=== PATIENT | female | born 1975 | race Caucasian/White ===

== ENCOUNTER 2021-09-16 16:01 | Inpatient (IN) ==
[2021-09-16 21:04] LABS: Basophils # 0.1 K/mcL (0.0-0.2); Basophils % 0.2 %; Eosinophils # 0.1 K/mcL (0.0-0.6); Eosinophils % 0.4 %; Hematocrit 52.5 % (35.3-44.9); Hemoglobin 16.5 g/dL (11.5-15.4); Immature Granulocytes % 6.1 % (0-4); Lymphocytes # 2.8 K/mcL (0.6-4.6); Lymphocytes % 11.3 %; Mean Corpuscular HGB Conc 31.4 g/dL (31.6-35.5); Mean Corpuscular Hemoglobin 26.5 pg (28.0-33.3); Mean Corpuscular Volume 84.3 fL (83.0-100.0); Mean Platelet Volume 10.8 fL (9.4-12.4); Monocytes # 1.6 K/mcL (0.0-1.3); Monocytes % 6.3 %; Neutrophils # 18.7 K/mcL (1.6-8.9); Platelet Count 406 K/mcL (140-400); Red Blood Count 6.23 M/mcL (3.82-4.97); Red Cell Distribution Width 13.7 % (11.5-14.5); Segmented Neutrophils % 75.7 %; White Blood Count 24.7 K/mcL (4.3-11.1)
[2021-09-16 21:18] LABS: Alanine Aminotransferase 38 Units/L (7-52); Albumin 3.2 g/dL (3.5-5.7); Albumin/Globulin Ratio 0.7 (1.1-2.2); Alkaline Phosphatase 251 Units/L (34-104); Amylase 23 Units/L (29-103); Aspartate Amino Transferase 35 Units/L (13-39); BUN/Creatinine Ratio 23 (6-26); Bilirubin,Direct 0.2 mg/dL (0.0-0.2); Bilirubin,Indirect 0.7 mg/dL (0.0-1.0); Bilirubin,Total 0.9 mg/dL (0.3-1.0); Blood Urea Nitrogen 19 mg/dL (6-20); Calcium 8.9 mg/dL (8.6-10.3); Carbon Dioxide 36 mEq/L (23-29); Chloride 83 mEq/L (98-107); Globulin 4.6 g/dL (2.4-3.5); Glucose 118 mg/dL (70-105); Lipase 41 Units/L (11-82); Osmolality,Calculated 269 (280-300); Potassium 2.7 mEq/L (3.5-5.1); Sodium 128 mEq/L (136-145); Total Protein 7.8 g/dL (6.4-8.9); eGFR For African Americans > 60 (> 60); eGFR For Non-African Americans > 60 (> 60)
[2021-09-16] MEDS ORDERED: Vancomycin 2,000 MG/520 ML IV.SOLN IVPB ONE (21:32)
[2021-09-16] MEDS ORDERED: Piperacillin/Tazobactam 3.375 GM in 0.9 % Sodium Chloride Mini Bag 100 ML IVPB ONE (21:32)
[2021-09-16 21:40] LABS: Reactive Lymphocytes Present (Not Present)
[2021-09-16] MEDS: Ketorolac 30 MG/ML VIAL IVP ONE (21:51)
[2021-09-16] MEDS ORDERED: Naloxone 0.4 MG/ML INJ IVP PRN (22:49)
[2021-09-16] MEDS ORDERED: Melatonin 3 MG TABLET PO PRN (22:49)
[2021-09-16] MEDS ORDERED: Ondansetron ODT 4 MG TAB.RAPDIS SL PRN (22:49)
[2021-09-16] MEDS ORDERED: Isovue-370 500 ML BOTTLE IVP ONE (23:40)
[2021-09-16] MEDS ORDERED: Ipratropium/Albuterol Neb 3 ML IH PRN (23:52)
[2021-09-17] MEDS ORDERED: Ringers Solution, Lactated 1,000 ML IVC SCH (00:15)
[2021-09-17] MEDS ORDERED: Ringers Solution, Lactated 1,000 ML IVC ONE (00:44)
[2021-09-17] MEDS ORDERED: Dextrose 4 GM Chewable Tablets PO PRN ×2 (01:02)
[2021-09-17] MEDS ORDERED: *HR* Dextrose 50 % in Water (Syg) 50 ML SYRINGE IVP PRN (01:02)
[2021-09-17] MEDS ORDERED: D5% in Water 1,000 ML IVC PRN (01:02)
[2021-09-17] MEDS: Ketorolac 30 MG/ML VIAL IVP ONE (01:31)
[2021-09-17 03:33] LABS: Activated Partial Thrombo Time 28.4 Seconds (26.0-36.0)
[2021-09-17 03:43] LABS: Phosphorous 3.5 mg/dL (2.7-4.5)
[2021-09-17 03:50] LABS: Procalcitonin 1.27 ng/mL (0.00-0.15)
[2021-09-17] MEDS: Nicotine 21 MG PATCH.TD24 TD SCH (04:16)
[2021-09-17] MEDS: *HR* Heparin 5,000 UNIT/ML VIAL SQ SCH ×3 (04:18→17:28)
[2021-09-17 04:39] LABS: INR 1.3; Prothrombin Time 14.4 Seconds (9.4-12.1)
[2021-09-17 05:14] LABS: Basophils # 0.2 K/mcL (0.0-0.2); Basophils % 0.7 %; Eosinophils # 0.1 K/mcL (0.0-0.6); Eosinophils % 0.5 %; Hematocrit 44.2 % (35.3-44.9); Immature Granulocytes % 5.1 % (0-4); Lymphocytes # 2.1 K/mcL (0.6-4.6); Lymphocytes % 9.8 %; Mean Corpuscular HGB Conc 32.4 g/dL (31.6-35.5); Mean Corpuscular Hemoglobin 27.2 pg (28.0-33.3); Mean Platelet Volume 10.6 fL (9.4-12.4); Monocytes # 1.6 K/mcL (0.0-1.3); Monocytes % 7.3 %; Neutrophils # 16.6 K/mcL (1.6-8.9); Platelet Count 297 K/mcL (140-400); Red Blood Count 5.26 M/mcL (3.82-4.97); Red Cell Distribution Width 13.5 % (11.5-14.5); Segmented Neutrophils % 76.6 %; White Blood Count 21.6 K/mcL (4.3-11.1)
[2021-09-17 05:17] LABS: BUN/Creatinine Ratio 30 (6-26); Blood Urea Nitrogen 22 mg/dL (6-20); Carbon Dioxide 34 mEq/L (23-29); Chloride 89 mEq/L (98-107); Chol/HDL Ratio 6.1 (0-4.9); Cholesterol 103 mg/dL (< 200); Glucose 115 mg/dL (70-105); HDL Cholesterol 17 mg/dL (40-59); LDL Cholesterol,Calculated 68 mg/dL (< 100); Osmolality,Calculated 274 (280-300); Potassium 3.2 mEq/L (3.5-5.1); Sodium 130 mEq/L (136-145); Triglycerides 92 mg/dL (< 150); eGFR For African Americans > 60 (> 60); eGFR For Non-African Americans > 60 (> 60)
[2021-09-17 05:19] LABS: Hemoglobin 14.3 g/dL (11.5-15.4)
[2021-09-17] MEDS ORDERED: Potassium Chloride Elixir 20 MEQ/15 ML UDC PO ONE (05:29)
[2021-09-17] MEDS: Piperacillin/Tazobactam 3.375 GM in 0.9 % Sodium Chloride Mini Bag 100 ML IVPB SCH ×4 (05:47→20:26)
[2021-09-17] MEDS: 0.9 % Sodium Chloride 1,000 ML IVC SCH ×3 (05:47→20:24)
[2021-09-17 05:59] LABS: Platelet Estimate Normal (Normal)
[2021-09-17 07:45] LABS: Hepatitis B Surface Antigen Nonreactive (Nonreactive)
[2021-09-17 08:08] LABS: Bilirubin,Urine Negative (Negative); Blood,Urine Trace (Negative); Clarity,Urine Clear (Clear); Color,Urine Yellow (Yellow); Glucose,Urine (UA) Normal (Normal); Ketones,Urine Negative (Negative); Leukocyte Esterase,Urine Negative (Negative); Nitrite,Urine Negative (Negative); Protein,Urine Trace mg/dL (Neg-Trace); RBC,Urine 0-3 per hpf (0-3); Specific Gravity,Urine > 1.030 (1.010-1.025); Urobilinogen,Urine Normal (Normal)
[2021-09-17 08:14] LABS: Hepatitis B Core IgM Nonreactive (Nonreactive)
[2021-09-17 08:15] LABS: Hepatitis A Antibody IgM Nonreactive (Nonreactive)
[2021-09-17] MEDS: Lactobacillus 1 EACH CAP.SPRINK PO SCH ×2 (08:26→20:27)
[2021-09-17] MEDS: Ketorolac 30 MG/ML VIAL IVP PRN (08:43)
[2021-09-17] MEDS: Vancomycin 1,500 MG/265 ML IV.SOLN IVPB SCH ×2 (11:22→20:25)
[2021-09-17 11:50] LABS: Hepatitis C Virus Antibody Reactive (Nonreactive)
[2021-09-17] MEDS: Gabapentin 400 MG CAPSULE PO SCH ×2 (14:45→20:27)
[2021-09-17] MEDS: Methadone Oral Concentrate 50 MG/5 ML UDC PO SCH (14:46)
[2021-09-18] MEDS: Nicotine 21 MG PATCH.TD24 TD SCH (01:19)
[2021-09-18] MEDS: 0.9 % Sodium Chloride 1,000 ML IVC SCH ×3 (05:19→21:33)
[2021-09-18] MEDS: *HR* Heparin 5,000 UNIT/ML VIAL SQ SCH ×2 (05:19→18:14)
[2021-09-18] MEDS: Piperacillin/Tazobactam 3.375 GM in 0.9 % Sodium Chloride Mini Bag 100 ML IVPB SCH ×3 (05:19→21:21)
[2021-09-18 05:45] LABS: Hematocrit 41.8 % (35.3-44.9); Mean Corpuscular HGB Conc 31.1 g/dL (31.6-35.5); Mean Corpuscular Hemoglobin 26.5 pg (28.0-33.3); Mean Corpuscular Volume 85.3 fL (83.0-100.0); Mean Platelet Volume 10.1 fL (9.4-12.4); Platelet Count 278 K/mcL (140-400); Red Cell Distribution Width 13.9 % (11.5-14.5); White Blood Count 14.5 K/mcL (4.3-11.1)
[2021-09-18 06:05] LABS: BUN/Creatinine Ratio 26 (6-26); Blood Urea Nitrogen 18 mg/dL (6-20); Calcium 7.9 mg/dL (8.6-10.3); Carbon Dioxide 32 mEq/L (23-29); Chloride 98 mEq/L (98-107); Glucose 165 mg/dL (70-105); Osmolality,Calculated 284 (280-300); Sodium 134 mEq/L (136-145); Vancomycin,Trough 13 mcg/mL (5-10); eGFR For African Americans > 60 (> 60); eGFR For Non-African Americans > 60 (> 60)
[2021-09-18] MEDS: Methadone Oral Concentrate 50 MG/5 ML UDC PO SCH (10:10)
[2021-09-18] MEDS: Aspirin 81 MG TAB.CHEW PO SCH (10:10)
[2021-09-18] MEDS: Lactobacillus 1 EACH CAP.SPRINK PO SCH ×2 (10:10→21:20)
[2021-09-18] MEDS: Gabapentin 400 MG CAPSULE PO SCH ×3 (10:10→21:20)
[2021-09-18] MEDS: Vancomycin 1,500 MG/265 ML IV.SOLN IVPB SCH ×2 (10:11→21:23)
[2021-09-18] MEDS: tiZANidine 4 MG TABLET PO PRN (21:20)
[2021-09-19] MEDS: *HR* Heparin 5,000 UNIT/ML VIAL SQ SCH ×2 (05:44→17:45)
[2021-09-19] MEDS: Piperacillin/Tazobactam 3.375 GM in 0.9 % Sodium Chloride Mini Bag 100 ML IVPB SCH ×3 (05:45→19:51)
[2021-09-19] MEDS: Nicotine 21 MG PATCH.TD24 TD SCH ×2 (05:46→19:52)
[2021-09-19 06:26] LABS: Hematocrit 41.5 % (35.3-44.9); Hemoglobin 12.7 g/dL (11.5-15.4); Mean Corpuscular HGB Conc 30.6 g/dL (31.6-35.5); Mean Corpuscular Hemoglobin 26.6 pg (28.0-33.3); Mean Platelet Volume 10.1 fL (9.4-12.4); Platelet Count 258 K/mcL (140-400); Red Blood Count 4.77 M/mcL (3.82-4.97); Red Cell Distribution Width 13.9 % (11.5-14.5); White Blood Count 10.4 K/mcL (4.3-11.1)
[2021-09-19 06:44] LABS: BUN/Creatinine Ratio 22 (6-26); Blood Urea Nitrogen 14 mg/dL (6-20); Calcium 8.2 mg/dL (8.6-10.3); Carbon Dioxide 31 mEq/L (23-29); Chloride 99 mEq/L (98-107); Glucose 163 mg/dL (70-105); Osmolality,Calculated 282 (280-300); Potassium 4.2 mEq/L (3.5-5.1); Sodium 134 mEq/L (136-145); eGFR For African Americans > 60 (> 60); eGFR For Non-African Americans > 60 (> 60)
[2021-09-19] MEDS: Methadone Oral Concentrate 50 MG/5 ML UDC PO SCH (08:57)
[2021-09-19] MEDS: Lactobacillus 1 EACH CAP.SPRINK PO SCH ×2 (08:58→19:50)
[2021-09-19] MEDS: Aspirin 81 MG TAB.CHEW PO SCH (08:58)
[2021-09-19] MEDS: Gabapentin 400 MG CAPSULE PO SCH ×3 (08:58→19:50)
[2021-09-19] MEDS: Vancomycin 1,500 MG/265 ML IV.SOLN IVPB SCH ×2 (09:11→21:18)
[2021-09-19] MEDS: 0.9 % Sodium Chloride 1,000 ML IVC SCH ×3 (09:13→19:49)
[2021-09-19] MEDS: Ketorolac 30 MG/ML VIAL IVP PRN (18:47)
[2021-09-19] MEDS: tiZANidine 4 MG TABLET PO PRN (19:50)
[2021-09-20] MEDS: 0.9 % Sodium Chloride 1,000 ML IVC SCH (05:47)
[2021-09-20] MEDS: *HR* Heparin 5,000 UNIT/ML VIAL SQ SCH ×2 (05:48→18:24)
[2021-09-20] MEDS: Piperacillin/Tazobactam 3.375 GM in 0.9 % Sodium Chloride Mini Bag 100 ML IVPB SCH ×3 (05:48→21:07)
[2021-09-20] MEDS: Methadone Oral Concentrate 50 MG/5 ML UDC PO SCH (08:29)
[2021-09-20] MEDS: Aspirin 81 MG TAB.CHEW PO SCH (08:29)
[2021-09-20] MEDS: Gabapentin 400 MG CAPSULE PO SCH ×3 (08:30→21:07)
[2021-09-20] MEDS: Lactobacillus 1 EACH CAP.SPRINK PO SCH ×2 (08:30→21:07)
[2021-09-20 10:03] LABS: BUN/Creatinine Ratio 30 (6-26); Blood Urea Nitrogen 18 mg/dL (6-20); Calcium 8.2 mg/dL (8.6-10.3); Carbon Dioxide 29 mEq/L (23-29); Chloride 100 mEq/L (98-107); Glucose 131 mg/dL (70-105); Osmolality,Calculated 280 (280-300); Potassium 4.9 mEq/L (3.5-5.1); Sodium 133 mEq/L (136-145); eGFR For African Americans > 60 (> 60); eGFR For Non-African Americans > 60 (> 60)
[2021-09-20] MEDS: Vancomycin 1,500 MG/265 ML IV.SOLN IVPB SCH ×2 (12:16→21:55)
[2021-09-20] MEDS: Nicotine 21 MG PATCH.TD24 TD SCH (22:45)
[2021-09-21] MEDS: *HR* Heparin 5,000 UNIT/ML VIAL SQ SCH ×2 (04:52→17:53)
[2021-09-21] MEDS: Piperacillin/Tazobactam 3.375 GM in 0.9 % Sodium Chloride Mini Bag 100 ML IVPB SCH ×2 (04:52→13:23)
[2021-09-21 08:01] LABS: BUN/Creatinine Ratio 24 (6-26); Blood Urea Nitrogen 15 mg/dL (6-20); Calcium 8.3 mg/dL (8.6-10.3); Carbon Dioxide 31 mEq/L (23-29); Chloride 99 mEq/L (98-107); Glucose 175 mg/dL (70-105); Magnesium 1.6 mg/dL (1.6-2.6); Osmolality,Calculated 281 (280-300); Potassium 4.2 mEq/L (3.5-5.1); Sodium 133 mEq/L (136-145); eGFR For African Americans > 60 (> 60); eGFR For Non-African Americans > 60 (> 60)
[2021-09-21 08:03] LABS: Hematocrit 36.9 % (35.3-44.9); Hemoglobin 11.4 g/dL (11.5-15.4); Mean Corpuscular HGB Conc 30.9 g/dL (31.6-35.5); Mean Corpuscular Hemoglobin 26.6 pg (28.0-33.3); Mean Platelet Volume 9.9 fL (9.4-12.4); Platelet Count 239 K/mcL (140-400); Red Blood Count 4.29 M/mcL (3.82-4.97); Red Cell Distribution Width 13.7 % (11.5-14.5)
[2021-09-21] MEDS: Methadone Oral Concentrate 50 MG/5 ML UDC PO SCH (09:54)
[2021-09-21] MEDS: Lactobacillus 1 EACH CAP.SPRINK PO SCH ×2 (09:55→20:27)
[2021-09-21] MEDS: Gabapentin 400 MG CAPSULE PO SCH ×3 (09:55→20:27)
[2021-09-21] MEDS: Aspirin 81 MG TAB.CHEW PO SCH (09:55)
[2021-09-21] MEDS: Vancomycin 1,500 MG/265 ML IV.SOLN IVPB SCH (13:21)
[2021-09-21] MEDS: cephALEXin 500 MG CAPSULE PO SCH ×2 (17:52→20:27)
[2021-09-21] MEDS: Sulfamethoxazole/Trimeth DS 1 EACH TABLET PO SCH (20:27)
[2021-09-22] MEDS: Nicotine 21 MG PATCH.TD24 TD SCH (00:16)
[2021-09-22] MEDS: tiZANidine 4 MG TABLET PO PRN (00:42)
[2021-09-22] MEDS: *HR* Heparin 5,000 UNIT/ML VIAL SQ SCH ×2 (05:58→18:03)
[2021-09-22] MEDS: Sulfamethoxazole/Trimeth DS 1 EACH TABLET PO SCH ×2 (09:32→21:10)
[2021-09-22] MEDS: cephALEXin 500 MG CAPSULE PO SCH ×4 (09:33→21:09)
[2021-09-22] MEDS: Gabapentin 400 MG CAPSULE PO SCH ×3 (09:33→21:09)
[2021-09-22] MEDS: Lactobacillus 1 EACH CAP.SPRINK PO SCH ×2 (09:33→21:10)
[2021-09-22] MEDS: Methadone Oral Concentrate 50 MG/5 ML UDC PO SCH (09:34)
[2021-09-22] MEDS: Aspirin 81 MG TAB.CHEW PO SCH (09:34)
[2021-09-22] MEDS: Acetaminophen 325 MG TABLET PO PRN (16:16)
[2021-09-23] MEDS: Acetaminophen 325 MG TABLET PO PRN (03:12)
[2021-09-23] MEDS: tiZANidine 4 MG TABLET PO PRN ×2 (03:12→21:38)
[2021-09-23] MEDS: *HR* Heparin 5,000 UNIT/ML VIAL SQ SCH ×2 (04:11→17:57)
[2021-09-23] MEDS: Nicotine 21 MG PATCH.TD24 TD SCH (04:11)
[2021-09-23] MEDS: Gabapentin 400 MG CAPSULE PO SCH ×3 (08:49→21:27)
[2021-09-23] MEDS: Methadone Oral Concentrate 50 MG/5 ML UDC PO SCH (08:49)
[2021-09-23] MEDS: Lactobacillus 1 EACH CAP.SPRINK PO SCH ×2 (08:49→21:27)
[2021-09-23] MEDS: Aspirin 81 MG TAB.CHEW PO SCH (08:49)
[2021-09-23] MEDS: cephALEXin 500 MG CAPSULE PO SCH ×4 (08:49→21:38)
[2021-09-23] MEDS: Sulfamethoxazole/Trimeth DS 1 EACH TABLET PO SCH ×2 (11:54→21:26)
[2021-09-24] MEDS: Nicotine 21 MG PATCH.TD24 TD SCH (00:22)
[2021-09-24] MEDS: *HR* Heparin 5,000 UNIT/ML VIAL SQ SCH (04:07)
[2021-09-24] MEDS: Acetaminophen 325 MG TABLET PO PRN (04:07)
[2021-09-24] MEDS: Aspirin 81 MG TAB.CHEW PO SCH (07:39)
[2021-09-24] MEDS: Lactobacillus 1 EACH CAP.SPRINK PO SCH (07:39)
[2021-09-24] MEDS: cephALEXin 500 MG CAPSULE PO SCH ×2 (07:39→13:33)
[2021-09-24] MEDS: Gabapentin 400 MG CAPSULE PO SCH ×2 (07:39→13:33)
[2021-09-24] MEDS: Sulfamethoxazole/Trimeth DS 1 EACH TABLET PO SCH (07:39)
[2021-09-24] MEDS: Methadone Oral Concentrate 50 MG/5 ML UDC PO SCH (07:40)
[2021-09-24 07:47] VITALS: TEMP 97.8
[2021-09-24] MEDS ORDERED: Moderna Covid-19 Vaccine 100MCG/0.5mL IM ONE (09:58)
[2021-09-24 14:58] VITALS: BP 126/84; PULSE 95; O2SAT 96
== END 2021-09-24 16:01 | disposition home health service (06) | DRG 720 ==
LOC: 3ANU 16:01 → EMEROOARM 16:01 → SUATTDRO 21:59 → 3ANU 22:18 → SUATTDRO 09-17 08:06
PROVIDERS: ADMIT Internal Medicine; ATTEND Family Medicine

== ENCOUNTER 2022-04-05 11:27 | Inpatient (IN) ==
[2022-04-05] MEDS ORDERED: Vancomycin 2,000 MG/520 ML IV.SOLN IVPB ONE (15:15)
[2022-04-05] MEDS ORDERED: Iopamidol - 370 500 ML MLS IVP ONE (15:16)
[2022-04-05 15:32] LABS: Hematocrit 42.6 % (35.3-44.9); Mean Corpuscular HGB Conc 30.5 g/dL (31.6-35.5); Mean Corpuscular Hemoglobin 26.2 pg (28.0-33.3); Mean Corpuscular Volume 85.9 fL (83.0-100.0); Mean Platelet Volume 11.2 fL (9.4-12.4); Platelet Count 175 K/mcL (140-400); Red Blood Count 4.96 M/mcL (3.82-4.97); White Blood Count 26.3 K/mcL (4.3-11.1)
[2022-04-05 15:39] LABS: INR 1.7; Prothrombin Time 19.2 Seconds (9.4-12.1)
[2022-04-05 15:54] LABS: Alanine Aminotransferase 37 Units/L (7-52); Albumin 3.9 g/dL (3.5-5.7); Alkaline Phosphatase 104 Units/L (34-104); Aspartate Amino Transferase 36 Units/L (13-39); BUN/Creatinine Ratio 21 (6-26); Bilirubin,Direct 0.6 mg/dL (0.0-0.2); Bilirubin,Indirect 0.9 mg/dL (0.0-1.0); Bilirubin,Total 1.5 mg/dL (0.3-1.0); Blood Urea Nitrogen 16 mg/dL (6-20); Calcium 9.4 mg/dL (8.6-10.3); Carbon Dioxide 31 mEq/L (23-29); Chloride 93 mEq/L (98-107); Globulin 3.8 g/dL (2.4-3.5); Glucose 89 mg/dL (70-105); Osmolality,Calculated 271 (280-300); Potassium 3.9 mEq/L (3.5-5.1); Sodium 130 mEq/L (136-145); Total Protein 7.7 g/dL (6.4-8.9)
[2022-04-05 15:56] LABS: Lymphocytes # 1.6 K/mcL (0.6-4.6); Monocytes # 0.5 K/mcL (0.0-1.3); Neutrophils # 24.2 K/mcL (1.6-8.9)
[2022-04-05 15:59] LABS: Troponin I 0.26 ng/mL (< 0.04)
[2022-04-05] MEDS ORDERED: Aspirin 325 MG TABLET PO ONE (16:00)
[2022-04-05] MEDS: 0.9 % Sodium Chloride 1,000 ML IVC SCH ×2 (16:05→18:17)
[2022-04-05 17:41] LABS: Adenovirus Not Detected (Not Detect); Bordetella Pertussis Not Detected (Not Detect); Chlamydophila pneumoniae Not Detected (Not Detect); Coronavirus 229E Not Detected (Not Detect); Coronavirus HKU1 Not Detected (Not Detect); Coronavirus NL63 Not Detected (Not Detect); Coronavirus OC43 Not Detected (Not Detect); Human Metapneumovirus Not Detected (Not Detect); Human Rhinovirus/Enterovirus Not Detected (Not Detect); Influenza A Subtype 2009 H1 Not Detected (Not Detect); Influenza B Not Detected (Not Detect); Mycoplasma pneumoniae Not Detected (Not Detect); Parainfluenza Virus 1 Not Detected (Not Detect); Parainfluenza Virus 2 Not Detected (Not Detect); Parainfluenza Virus 3 Not Detected (Not Detect); Parainfluenza Virus 4 Not Detected (Not Detect); Respiratory Syncytial Virus Not Detected (Not Detect); SARS-CoV-2 Not Detected (Not Detect)
[2022-04-05] MEDS ORDERED: *HR* Heparin 5,000 UNIT/ML VIAL IVP ONE (18:12)
[2022-04-05] MEDS ORDERED: 0.9 % Sodium Chloride 1,000 ML IVC ONE (18:28)
[2022-04-05] MEDS ORDERED: Ondansetron 4 MG/2 ML VIAL IVP PRN (19:42)
[2022-04-05] MEDS ORDERED: Melatonin 3 MG TABLET PO PRN (19:42)
[2022-04-05] MEDS ORDERED: Naloxone 0.4 MG/ML INJ IVP PRN (19:42)
[2022-04-05] MEDS ORDERED: Vancomycin (wt based) 1,000 MG VIAL IVPB SCH (20:00)
[2022-04-05 20:18] LABS: Amphetamine Screen,Urine Positive ng/mL (Cutoff=1000); Barbiturate Screen,Urine Negative ng/mL (Cutoff=200); Benzodiazepines Screen,Urine Negative ng/mL (Cutoff=200); Cannabinoid Screen,Urine Negative ng/mL (Cutoff = 50); Cocaine Screen,Urine Negative ng/mL (Cutoff= 300); Opiate Screen,Urine Negative ng/mL (Cutoff=300); Phencyclidine Screen,Urine Negative ng/mL (Cutoff=25)
[2022-04-05] MEDS: Heparin 25,000UNIT/250ML 1/2NS 25,000 UNIT/250 ML IV.SOLN IVC SCH (20:19)
[2022-04-05 20:48] LABS: Bilirubin,Urine Negative (Negative); Blood,Urine Trace (Negative); Clarity,Urine Clear (Clear); Color,Urine Light-Orange (Yellow); Glucose,Urine (UA) Normal (Normal); Ketones,Urine Trace mg/dL (Negative); Leukocyte Esterase,Urine Negative (Negative); Mucus,Urine Few per lpf (None-Few); Nitrite,Urine Negative (Negative); PH,Urine 6.5 pH Units (5.0-8.0); Protein,Urine 50 mg/dL (Neg-Trace); Specific Gravity,Urine > 1.030 (1.010-1.025); Squamous Epithelial Cell,Urine Few per hpf (None-Few); Urobilinogen,Urine Normal (Normal); WBC,Urine 0-3 per hpf (0-3)
[2022-04-05] MEDS: Azithromycin 500 MG in 0.9 % Sodium Chloride 250 ML IVPB SCH (21:12)
[2022-04-05] MEDS: Metoprolol XL (24 HR) Succ 25 MG TAB.ER.24H PO SCH (21:13)
[2022-04-05 23:19] LABS: ABG Base Excess 0 mEq/L (-2 to 3); ABG HCO3 25 mEq/L (21-27); ABG Oxygen Saturation 95 % (95-98); ABG PCO2 45 mmHg (35-45); ABG PH 7.36 pH Units (7.32-7.45); ABG PO2 77 mmHg (85-104); ABG TCO2 27 mEq/L (20-26)
[2022-04-06] MEDS: Cefepime HCl 2,000 MG in 0.9 % Sodium Chloride 10 ML IVP SCH ×3 (00:10→14:22)
[2022-04-06] MEDS: Vancomycin 1,750 MG/517.5 ML IV.SOLN IVPB SCH ×2 (00:13→11:42)
[2022-04-06] MEDS: Ipratropium/Albuterol Neb 3 ML IH SCH ×6 (02:00→19:35)
[2022-04-06 03:53] LABS: Mean Corpuscular HGB Conc 30.8 g/dL (31.6-35.5); Mean Corpuscular Hemoglobin 26.5 pg (28.0-33.3); Mean Corpuscular Volume 85.8 fL (83.0-100.0); Platelet Count 130 K/mcL (140-400); Red Blood Count 4.31 M/mcL (3.82-4.97); Red Cell Distribution Width 14.1 % (11.5-14.5); White Blood Count 18.2 K/mcL (4.3-11.1)
[2022-04-06 03:54] LABS: Alanine Aminotransferase 28 Units/L (7-52); Albumin/Globulin Ratio 0.9 (1.1-2.2); Alkaline Phosphatase 74 Units/L (34-104); Aspartate Amino Transferase 26 Units/L (13-39); BUN/Creatinine Ratio 21 (6-26); Bilirubin,Direct 0.4 mg/dL (0.0-0.2); Bilirubin,Indirect 0.5 mg/dL (0.0-1.0); Bilirubin,Total 0.9 mg/dL (0.3-1.0); Blood Urea Nitrogen 14 mg/dL (6-20); Calcium 8.4 mg/dL (8.6-10.3); Carbon Dioxide 30 mEq/L (23-29); Chloride 100 mEq/L (98-107); Globulin 3.3 g/dL (2.4-3.5); Glucose 131 mg/dL (70-105); Magnesium 1.6 mg/dL (1.6-2.6); Osmolality,Calculated 276 (280-300); Potassium 3.1 mEq/L (3.5-5.1); Sodium 132 mEq/L (136-145); Total Protein 6.3 g/dL (6.4-8.9)
[2022-04-06 03:55] LABS: Hemoglobin 11.4 g/dL (11.5-15.4)
[2022-04-06 04:02] LABS: INR 1.6; Prothrombin Time 17.3 Seconds (9.4-12.1)
[2022-04-06] MEDS ORDERED: *HR* Heparin 5,000 UNIT/ML VIAL IVP PRN (06:10)
[2022-04-06] MEDS: *HR* Heparin 5,000 UNIT/ML VIAL IVP PRN ×2 (06:16→14:21)
[2022-04-06] MEDS: Budesonide/Formoterol 80/4.5 1 PUFF INH IH SCH ×2 (07:23→19:35)
[2022-04-06] MEDS: Metoprolol XL (24 HR) Succ 25 MG TAB.ER.24H PO SCH (08:00)
[2022-04-06] MEDS ORDERED: Gadolinium Contrast Agent (WT Based) IV PRN (08:41)
[2022-04-06] MEDS ORDERED: Pantoprazole 40 MG VIAL IVP SCH (09:00)
[2022-04-06] MEDS ORDERED: predniSONE 20 MG TABLET PO SCH (09:00)
[2022-04-06] MEDS ORDERED: Aspirin 81 MG TAB.CHEW PO SCH (09:00)
[2022-04-06] MEDS ORDERED: Nicotine 21 MG PATCH.TD24 TD SCH (10:30)
[2022-04-06 14:42] VITALS: PULSE 84
[2022-04-06] MEDS ORDERED: Methadone Oral Concentrate 50 MG/5 ML UDC PO SCH (14:45)
[2022-04-06] MEDS: Heparin 25,000UNIT/250ML 1/2NS 25,000 UNIT/250 ML IV.SOLN IVC SCH (15:23)
[2022-04-06 19:45] VITALS: BP 146/82; TEMP 98; O2SAT 100
[2022-04-06] MEDS ORDERED: Azithromycin 500 MG VIAL IVPB ONE (21:03)
[2022-04-06] MEDS: Azithromycin 500 MG in 0.9 % Sodium Chloride 250 ML IVPB SCH (21:07)
[2022-04-06] MEDS ORDERED: *HR* Heparin 5,000 UNIT/ML VIAL IVP ONE (21:13)
== END 2022-04-06 23:59 | disposition other institution (70) | DRG 720 ==
LOC: EMEROOARM 11:27 → 3BNU 11:27 → SUATTDRO 19:01 → 3BNU 20:30
PROVIDERS: ADMIT Internal Medicine; ATTEND Registered Nurse